=== PATIENT | female | born 1995 | race Caucasian/White ===

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

== ENCOUNTER 2017-07-12 11:41 | Emergency (ER) | payer SELFPAY ==
[~2017-07-12] VITALS: Ht 162.6 cm; Wt 72.2 kg
[2017-07-12 12:56] LABS: HEMATOCRIT 41.6 % (36.0-46.0); MCH 31.2 PG (29.0-34.0); MCHC 33.4 G/DL (30.0-36.0); MCV 93.3 FL (83-99); MEAN PLAT.VOLUME 10.6 uM^3 (9.5-12.4); PLATELET COUNT 196 K/uL (156-360); RBC DIS.WIDTH-CV 12.2 % (11.8-14.6); RBC DIS.WIDTH-SD 42.2 % (39-53); RED BLOOD COUNT 4.46 M/uL (3.80-5.20); WHITE BLOOD COUNT 5.1 K/uL (4.1-10.2)
[2017-07-12 13:04] LABS: CHLORIDE 107 mEq/L (99-109); POTASSIUM 4.4 mEq/L (3.7-5.4); SODIUM 143 mEq/L (136-147)
[2017-07-12 13:06] LABS: GLUCOSE 96 mg/dL (70-99)
[2017-07-12 13:07] LABS: ANION GAP 9 MEQ/L (2-14)
[2017-07-12 13:08] LABS: TOTAL BILIRUBIN 0.3 mg/dL (0.0-1.0)
[2017-07-12 13:09] LABS: ALKALINE PHOSPHATASE 54 IU/L (3-129)
[2017-07-12 13:10] LABS: GFR ESTIMATE (CALCULATED) > 59 mL/min/
[2017-07-12 13:11] LABS: UREA NITROGEN (BUN) 9 mg/dL (9-23)
[2017-07-12 13:23] LABS: QUANTITATIVE HCG < 4.0 MIU/ML
[2017-07-12 13:29] LABS: ADD MIUA? YES; BILIRUBIN NEGATIVE; BLOOD NEGATIVE; COLOR YELLOW ((YELLOW)); GLUCOSE (STRIP) NEGATIVE; KETONES NEGATIVE; LEUKOCYTES TRACE; NITRITE NEGATIVE; PROTEIN (STRIP) NEGATIVE; SPECIFIC GRAVITY 1.012 (1.000-1.030); UROBILINOGEN 0.2 MG/DL (0.2-1.0)
[2017-07-12 13:32] LABS: BACTERIA RARE /HPF; EPITHELIAL CELLS RARE /HPF; MUCUS TRACE /LPF; RED BLOOD CELLS 0-5 /HPF (0-5); UCUL ADDED? NO; WHITE BLOOD CELLS 0-5 /HPF (0-5)
[2017-07-12] MEDS ORDERED: INDOCIN50 MG PO (17:17)
[2017-07-12 17:35] VITALS: BP 132/87
[2017-07-13 12:42] LABS: CHLAMYDIA TRACHOMATIS NEGATIVE; NEISSERIA GONORRHOEAE NEGATIVE
== END 2017-07-12 17:36 | disposition home or self-care (01) ==
LOC: EME 11:41
PROVIDERS: Physician Assistant
DX: R10.2 Pelvic and perineal pain (principal); N72 Inflammatory disease of cervix uteri; R07.9 Chest pain, unspecified; Z97.5 Presence of (intrauterine) contraceptive device; F17.200 Nicotine dependence, unspecified, uncomplicated
CPT/HCPCS: 80053; 81003; 84702; 85027; 87210; 87491; 87591; 93005; 99281; 99284; J0696